=== PATIENT | female | born 1985 ===

== ENCOUNTER 2017-10-10 13:20 | Emergency (ER) | payer SELFPAY ==
[2017-10-10 13:40] VITALS: BP 131/86; PULSE 80; RESP 20; TEMP 98.2; O2SAT 97
--- NOTE | 2017-10-10 13:54 | C.PDOC ---
History Of Present Illness Pt states she recently moved to the area and is asking for refill of her depression medication. Last dose 2 days ago. Pt is asymptomatic. Time Seen by Provider: 10/10/17 13:44 Chief Complaint (Nursing): Med Refill History Per: Patient Onset/Duration Of Symptoms: Days (2) Current Symptoms Are (Timing): Still Present Severity: None Past Medical History Reviewed: Historical Data, Nursing Documentation, Vital Signs Vital Signs: Last Vital Signs Temp 98.2 F 10/10/17 13:37 Pulse 80 10/10/17 13:37 Resp 20 10/10/17 13:37 BP 131/86 10/10/17 13:37 Pulse Ox 97 10/10/17 13:37 - Medical History PMH: Depression Surgical History: No Surg Hx Family History: States: Unknown Family Hx - Social History Hx Tobacco Use: No Hx Alcohol Use: Yes Hx Substance Use: No Review Of Systems Except As Marked, All Systems Reviewed And Found Negative. Constitutional: Negative for: Fever, Weakness Cardiovascular: Negative for: Chest Pain Respiratory: Negative for: Shortness of Breath Gastrointestinal: Negative for: Vomiting, Abdominal Pain Musculoskeletal: Negative for: Neck Pain Skin: Negative for: Rash Neurological: Negative for: Weakness, Numbness Psych: Negative for: Suicidal ideation Physical Exam - Physical Exam Appears: Non-toxic, No Acute Distress Skin: Normal Color, Warm, Dry, No Rash Head: Atraumatic, Normacephalic Eye(s): bilateral: Normal Inspection, PERRL, EOMI Neck: Normal ROM, Supple Cardiovascular: Rhythm Regular Respiratory: Normal Breath Sounds, No Accessory Muscle Use Extremity: Normal ROM Neurological/Psych: Oriented x3, Normal Speech, Normal Cognition, Normal Motor, Normal Sensation ED Course And Treatment O2 Sat by Pulse Oximetry: 97 Pulse Ox Interpretation: Normal Progress Note: Pt was also given referral to outpt mental health. Disposition Counseled Patient/Family Regarding: Diagnosis, Need For Followup, Rx Given - Disposition Disposition: HOME/ ROUTINE Disposition Time: 13:54 Condition: STABLE Additional Instructions: Follow up with outpatient mental health. Return to the ER if you develop suicidal or homicidal thoughts, worsening of symptoms or if you have any other concerns. Prescriptions: Venlafaxine HCl [Venlafaxine HCl ER] 150 mg PO DAILY #30 cap.er.24h Instructions: Medicine Refill (ED) - Clinical Impression Clinical Impression: Medication refill
== END 2017-10-10 14:26 | disposition home or self-care (01) ==
LOC: C.ER 13:20
DX: Z76.0 Encounter for issue of repeat prescription (principal)